=== PATIENT | male | born 1995 | race Caucasian/White ===

== ENCOUNTER 2024-12-14 14:19 | Emergency (ER) | payer BC ==
--- NOTE | 2024-12-14 14:22 | ERPHSYRPT ---
- History of Present Illness Time Seen by Provider: 12/14/24 14:22 Source: patient, family Exam Limitations: no limitations Physician History: This a 29-year-old white male patient brought in by private vehicle accompanied by his spouse with the complaint of throat slightly tightening itching around his mouth after he was possibly exposed to peanut butter. The exposure was at around 1300. My evaluation of him is 1425. He has no difficulty breathing. He did take 25 mg of Benadryl orally. He currently is in no distress. He does not have a rash or itching present. He does state that he had nausea earlier and vomited once. These are symptoms consistent with prior exposure to peanuts and peanut butter symptoms Timing/Duration: today Quality: itchy Severity: mild Location: face Possible Causes: other (Possibly exposed to peanut butter) Associated Symptoms: sore throat, other (Itching around and inside his mouth) Allergies/Adverse Reactions: cetirizine [From [facility]] Allergy (Verified 12/14/24 14:24) peanut Allergy (Verified 12/14/24 14:24) Home Medications: Loratadine 10 mg [Claritin 10 mg] 10 mg PO DAILY 12/14/24 [History] Travel Risk - International Travel Have you traveled outside of the country in past 3 weeks: No - Emerging Infectious Disease Are you exhibiting symptoms associated with any current EIDs: No - Review of Systems Constitutional: No Symptoms Eyes: No Symptoms Ears, Nose, & Throat: Other (Itching in and around his mouth with a mild sore throat that describes more of itching and tightness) Respiratory: No Symptoms Cardiac: No Symptoms Abdominal/Gastrointestinal: No Symptoms Genitourinary Symptoms: No Symptoms Musculoskeletal: No Symptoms Skin: No Symptoms Neurological: No Symptoms Psychological: No Symptoms Endocrine: No Symptoms Hematologic/Lymphatic: No Symptoms Immunological/Allergic: No Symptoms All Other Systems: Reviewed and Negative - Past Medical History Pertinent Past Medical History: Yes - Nursing Vital Signs Nursing Vital Signs: Initial Vital Signs Temperature 97.0 F 12/14/24 14:29 Pulse Rate 68 12/14/24 14:29 Respiratory Rate 18 12/14/24 14:29 Blood Pressure 132/85 12/14/24 14:29 O2 Sat by Pulse Oximetry 100 12/14/24 14:29 Pain Scale Pain Intensity 0 - Physical Exam General Appearance: no apparent distress, alert, anxiety Eye Exam: PERRL/EOMI, eyes nml inspection Ears, Nose, Throat Exam: normal ENT inspection, pharynx normal, moist mucous membranes Neck Exam: normal inspection, non-tender, supple, full range of motion Respiratory Exam: normal breath sounds, lungs clear, No chest tenderness, No respiratory distress, No wheezing, No stridor Cardiovascular Exam: regular rate/rhythm, normal heart sounds, normal peripheral pulses Gastrointestinal/Abdomen Exam: No tenderness Rectal Exam: not done Back Exam: normal inspection, normal range of motion, No CVA tenderness, No vertebral tenderness Extremity Exam: normal inspection, normal range of motion, pelvis stable Neurologic Exam: alert, oriented x 3, cooperative, neurosurgical nurse practitioner II-XII nml as tested, nml cerebellar function, nml station & gait, sensation nml Skin Exam: normal color, warm, dry Lymphatic Exam: No adenopathy SpO2 Interpretation: normal O2 Delivery: Room Air - Course Nursing assessment & vital signs reviewed: Yes Ordered Tests: Medication Summary Discontinued Medications Generic Name Dose Route Start Last Admin Trade Name Merritt PRN Reason Stop Dose Admin Diphenhydramine HCl 25 mg 12/14/24 14:37 Diphenhydramine Hcl 25 Mg Capsule PO 12/14/24 14:38 STAT ONE Famotidine 40 mg 12/14/24 14:37 Famotidine 20 Mg Tablet PO 12/14/24 14:38 STAT ONE Prednisone 20 mg 12/14/24 14:37 Prednisone 20 Mg Tablet PO 12/14/24 14:38 STAT ONE - Progress Progress: improved Progress Note: 12/14/24 14:47 My medical decision making and the assignment of low to moderate complexity of this patient's medical issue today is based on review of the patient's past medical history, reviewed patient's medication list, reviewed patient drug allergy list, history of present illness and physical findings on examination. The workup in this patient does not necessitate radiographic or laboratory studies. Differential diagnosis includes but is not limited to allergic reaction, contact dermatitis, seasonal allergies Counseled pt/family regarding: diagnosis, need for follow-up Medical Desision Making - Independent Historian Additional History obtained from: Spouse - Diagnostic Testing Diagnostic test were ordered, analyzed, and reviewed by me: No - Risk of complications Low Risk: Low risk of morbidity from additional dx testing or treatment The pt has a mod risk of morbidity or mortality based on: Need for prescription drug management - Departure Departure Disposition: Home Clinical Impression: Allergic reaction Condition: Stable Critical Care Time: No Referrals: DENNY RIVAS [Primary Care Provider, UNKNOWN] - Follow up/PCP as directed Additional Instructions: Take all your medications as prescribed. Take Benadryl 25 mg orally every 8 hours for the next 5 days. Return to the emergency department if symptoms recur. Call your primary care provider on 12/16/2024, to make arrangements for follow-up appointment for further evaluation management. Prescriptions: Prednisone 10 mg [Deltasone 10 mg] 10 mg PO TID #12 tablet Famotidine 20 mg [Pepcid 20 MG] 20 mg PO DAILY #5 tablet
[2024-12-14 14:30] VITALS: RESP 18; TEMP 97
[2024-12-14] MEDS ORDERED: Pepcid 20 MG ONE (14:42)
[2024-12-14] MEDS ORDERED: DELTASONE 20 MG ONE (14:43)
[2024-12-14] MEDS ORDERED: BENADRYL 25 MG CAPSULE ONE (14:43)
[2024-12-14] MEDS: DELTASONE 20 MG PO ONE (14:45)
[2024-12-14] MEDS: BENADRYL 25 MG CAPSULE PO ONE (14:46)
[2024-12-14] MEDS: Pepcid 20 MG PO ONE (14:46)
[2024-12-14 15:02] VITALS: BP 122/80; PULSE 75; O2SAT 98
== END 2024-12-14 15:03 | disposition home or self-care (01) ==
LOC: ED 14:19
DX: T78.19XA Other adverse food reactions, not elsewhere classified, initial encounter (principal); R20.2 Paresthesia of skin; R11.2 Nausea with vomiting, unspecified; Z79.52 Long term (current) use of systemic steroids; Z79.899 Other long term (current) drug therapy